=== PATIENT | female | born 2000 | race Caucasian/White ===

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

== ENCOUNTER → 2022-12-20 13:54 | Outpatient (BNVA) | payer BC, SELFPAY | PROVIDERS: Family Provider Registered Nurse; PCP Family Medicine; Visit Provider Family Medicine | DX: R76.0 Raised antibody titer (principal); M35.1 Other overlap syndromes; I73.00 Raynaud's syndrome without gangrene; F31.31 Bipolar disorder, current episode depressed, mild | CPT/HCPCS: 80053; 80061; 83036; 84443; 85025 ==